=== PATIENT | male | born 1990 | race African-American/Black ===

== ENCOUNTER 2020-08-25 14:09 | Emergency (ER) | payer OTHER ==
[~2020-08-25] VITALS: Ht 167.6 cm; Wt 60.0 kg
[2020-08-25 14:27] VITALS: BP 120/79
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
[2020-08-25] MEDS ORDERED: KETOROLAC 30 MG/1 ML ONE (14:58)
[2020-08-25] MEDS ORDERED: DIAZEPAM 5 MG TABLET ONE (14:58)
[2020-08-25] MEDS ORDERED: PLEASE ENTER ALLERGIES MC SCH (15:00)
[2020-08-25] MEDS ORDERED: DIAZEPAM 5 MG TABLET PO ONE (15:00)
[2020-08-25] MEDS: KETOROLAC 30 MG/1 ML IM ONE ×2 (15:01→15:06)
== END 2020-08-25 15:20 | disposition home or self-care (01) ==
LOC: ED 15:00
DX: G89.11 Acute pain due to trauma (principal); M54.5 Low back pain; F17.210 Nicotine dependence, cigarettes, uncomplicated; Z72.9 Problem related to lifestyle, unspecified; V49.59XA Passenger injured in collision with other motor vehicles in traffic accident, initial encounter; Y93.89 Activity, other specified; Y92.488 Other paved roadways as the place of occurrence of the external cause; Y99.8 Other external cause status
CPT/HCPCS: 99283; J1885